=== PATIENT | male | born 1965 | race Hispanic/Latino ===

== ENCOUNTER 2017-03-11 18:43 | Emergency (ER) | payer SELFPAY ==
[2017-03-11] MEDS ORDERED: INSULIN LISPRO 100 UNITS/ML PEN SUBCU ONE (18:59)
--- NOTE | 2017-03-11 19:20 | RAD ---
PROCEDURE: XR CHEST 1 VIEW HISTORY: ams COMPARISON: None TECHNIQUE: Single projection of the chest was done. FINDINGS: The lung christopher are well inflated . There are no discrete airspace infiltrates, pneumothoraces or pleural effusions. The pulmonary vascularity is normal. The cardiomediastinal silhouette is unremarkable for patient's age and sex. IMPRESSION: There is no acute pleural-parenchymal process seen in the imaged lung christopher. Location of Interpretation: Teleradiology Electronically signed by: Tripp Esparza MD 03/11/2017 7:19 PM CDT Workstation: [id number]
--- NOTE | 2017-03-11 19:22 | CT ---
EXAM: Head CLINICAL INDICATION: 52-year-old male with headache and confusion. COMPARISON: None. TECHNIQUE: CT brain without contrast. This exam was performed according to our departmental dose optimization program which includes use of automated exposure control, adjustment of the mA and/or kV according to patient size and/or use of iterative reconstruction technique. FINDINGS: Multifocal regions of patchy hypoattenuation are present in a subcortical and periventricular deep white matter distribution, nonspecific; however, most likely represent small vessel ischemic disease, age indeterminate. Focal area of encephalomalacia and gliosis present at the level of the RIGHT lateral inferior frontal, RIGHT superior frontal parietal temporal and LEFT occipital lobes compatible with sequela of prior infarction. LEFT basal ganglia, RIGHT caudate head focal area of hypoattenuation compatible with sequela of prior infarction. RIGHT cerebellar linear focus of hypoattenuation compatible with sequela of prior infarction. The ventricles, sulci, and cisterns are symmetric and unremarkable. The malloy-white matter differentiation is preserved. There is no mass effect, midline shift, intra- or extra-axial fluid collection/acute hemorrhage. The osseous structures are unremarkable. The paranasal sinuses and mastoid air cells are clear. IMPRESSION: 1. No acute intracranial abnormalities. Nonspecific white matter change most likely small vessel ischemic disease, age indeterminate. 2. CT is insensitive for early evaluation of acute stroke. If there is clinical concern for acute ischemia, an MRI may be considered. 3. Sequela of prior multifocal infarct as detailed above. Electronically signed by: Fernanda Saba MD 03/11/2017 7:21 PM CDT Workstation: [id number]
[2017-03-11] MEDS ORDERED: ASPIRIN TABLET 325 MG TAB PO ONE (20:14)
[2017-03-11 20:57] VITALS: O2SAT 98
--- NOTE | 2017-03-11 21:16 | ED.PDOC ---
History of Present Illness - General Chief Complaint: Neuro Symptoms/Deficits Time Seen by Provider: 03/11/17 18:52 Source: patient, family - History of Present Illness Initial Comments: the patient is a 52-year-old male presenting to the emergency room secondary to being found confused and with significant new visual field deficits by his family this evening. The last time he was seen normal was approximately 8 hours prior to arrival here. Family does report that the patient has been having some progressive vision difficulties over the last 2 weeks but they are markedly worse today. He does have a history of multiple strokes in the past and does have some resultant memory loss from that as well as left upper extremity weakness and difficulties with fine dexterity. He is a type II diabetic and his insulin managed. He has been having progressive memory loss over the last 4 months. No fevers. No neck pain. No abdominal pain. He gives answers to questions and 2-4 word responses. Most of them are correct. Family reports that some of his answers do not quite make total since. He does speak primarily Vincentian but does understand some Sami. On a NIH stroke scale the patient scores a 3 for his visual field defect to the left and inattention to the left visual christopher. his attention also does seem to be somewhat poor. His speech is fairly clear. He does not have any difficulty swallowing water. He is apparently moving his extremities as he normally does. Timing/Duration: unsure Severity: moderate Improving Factors: nothing Worsening Factors: nothing Associated Symptoms: headaches - Reports a very mild central frontal headache. Allergies/Adverse Reactions: Allergies NO KNOWN ALLERGY Allergy (Verified 03/11/17 19:42) Home Medications: Ambulatory Orders Donepezil Hydrochloride [Aricept] 10 mg PO BEDTIME 03/11/17 Metformin HCl 1,000 mg PO BID 03/11/17 Pravastatin Sodium [Pravachol] 20 mg PO BEDTIME 03/11/17 Review of Systems - Review of Systems Constitutional: States: malaise EENTM: States: blurred vision Respiratory: States: no symptoms reported Cardiology: States: no symptoms reported Gastrointestinal/Abdominal: States: no symptoms reported Genitourinary: States: no symptoms reported Musculoskeletal: States: no symptoms reported Skin: States: no symptoms reported Neurological: States: headache - mild, other Endocrine: States: no symptoms reported All other Systems: No Change from Baseline Past Medical History (General) - Patient Medical History Hx Seizures: No Hx Stroke: No Hx Dementia: No Hx Asthma: No Hx of COPD: No Hx Cardiac Disorders: No Hx Congestive Heart Failure: No Hx Pacemaker: No Hx Hypertension: Yes Hx Thyroid Disease: No Hx Diabetes: Yes Hx Gastroesophageal Reflux: No Hx Renal Disease: No Hx Cancer: No Hx of HIV: No Hx Hepatitis C: No Hx MRSA: No Surgical History: no surgical history - Vaccination History Hx Influenza Vaccination: Yes - Social History Hx Tobacco Use: Yes - quit 10 years Hx Alcohol Use: No Hx Substance Use: No Hx Substance Use Treatment: No Hx Depression: No Family Medical History - Family History Mother Family History: No Known Physical Exam - Physical Exam General Appearance: Alert, Comfortable, No apparent distress Eye Exam: bilateral other - once properly prompted the patient does appear to have all extraocular movements preserved at this time. Pupils are symmetrical and responsive to light. He does not appear to see anything in his left visual field. He sees best in hiis right lower visual field. This is for both eyes. Red reflexes are present bilaterally. Ears, Nose, Throat: hearing grossly normal - hoang he does have a fair amount of wax in his ears, normal pharynx Neck: full range of motion, supple Respiratory: lungs clear, normal breath sounds, no respiratory distress, no accessory muscle use Cardiovascular/Chest: normal peripheral pulses, regular rate, rhythm, no edema Peripheral Pulses: radial,right: 2+, radial,left: 2+, dorsalis pedis,right: 2+, dorsalis pedis,left: 2+ Gastrointestinal/Abdominal: non tender, soft Rectal Exam: deferred Back Exam: normal inspection, no CVA tenderness, no vertebral tenderness Extremity: non-tender, no pedal edema, normal capillary refill, other - he does have a significant weakness and decreased range of motion of his left upper extremity. Neurologic: alert, other - the patient does not appear to be upset at all. He knows the year. He recognizes his family members. He is unable to give the month of the day. He knows that Jamison Alejo is president. According to family this is not far off from normal. Skin Exam: normal color Comments: Vital Signs - 24 hr 03/11/17 03/11/17 03/11/17 19:20 19:37 20:00 Temperature 98 F Pulse Rate 71 70 Pulse Rate [ 71 78 80 left] Respiratory 18 22 18 Rate Blood Pressure 192/103 133/75 [left] O2 Sat by Pulse 94 L 98 Oximetry 03/11/17 21:07 Temperature Pulse Rate Pulse Rate [ 67 left] Respiratory 18 Rate Blood Pressure 163/97 [left] O2 Sat by Pulse 98 Oximetry Progress - Progress Progress: 03/11/17 21:23 the patient is a 52-year-old male who is a type II diabetic presenting with symptoms of an ischemic stroke giving new visual field deficits. Given the timeframe and relatively low NIH score, lytics are not being given. The patient is being transferred to [facility] for further neurological evaluation. Blood pressures have corrected on their own. He was given an aspirin here. Symptoms do not appear to have progressed since his arrival. - Results/Orders Results/Orders: Laboratory Tests 03/11/17 03/11/17 03/11/17 18:47 19:09 19:09 WBC 10.3 RBC 5.40 Hgb 15.3 Hct 46.1 MCV 85.2 MCH 28.3 MCHC 33.3 RDW 13.0 Plt Count 202 MPV 9.5 Absolute Neuts (auto) 8.10 H Absolute Lymphs (auto) 1.50 Absolute Monos (auto) 0.60 Absolute Eos (auto) 0.00 Absolute Basos (auto) 0.10 Neutrophils % 78.2 H Lymphocytes % 14.4 L Monocytes % 6.0 Eosinophils % 0.4 L Basophils % 1.0 PT INR PTT (SP) Sodium 139 Potassium 3.6 Chloride 100 L Carbon Dioxide 27 Anion Gap 15.6 BUN 14 Creatinine 0.87 BUN/Creatinine Ratio 16.1 POC Glucose 259 H Random Glucose 287 H Serum Osmolality 288.5 Calcium 9.6 Magnesium 1.9 Total Bilirubin 0.8 AST 29 ALT 38 Alkaline Phosphatase 92 Creatine Kinase 88 CK-MB (CK-2) 1.6 CK-MB (CK-2) % Not Reportable Troponin I 0.04 B-Natriuretic Peptide 21.2 Serum Total Protein 8.6 H Albumin 4.8 Globulin 3.8 H Albumin/Globulin Ratio 1.3 TSH 1.64 Urine Color Urine Appearance Urine pH Ur Specific [place] Urine Protein Urine Glucose (UA) Urine Ketones Urine Blood Urine Nitrite Urine Bilirubin Urine Urobilinogen Ur Leukocyte Esterase Urine RBC Urine WBC Ur Epithelial Cells Amorphous Sediment Urine Bacteria Hyaline Casts Fine Granular Casts Urine Mucus 03/11/17 03/11/17 19:09 19:35 WBC RBC Hgb Hct MCV MCH MCHC RDW Plt Count MPV Absolute Neuts (auto) Absolute Lymphs (auto) Absolute Monos (auto) Absolute Eos (auto) Absolute Basos (auto) Neutrophils % Lymphocytes % Monocytes % Eosinophils % Basophils % PT 10.7 INR 0.950 PTT (SP) 29.3 Sodium Potassium Chloride Carbon Dioxide Anion Gap BUN Creatinine BUN/Creatinine Ratio POC Glucose Random Glucose Serum Osmolality Calcium Magnesium Total Bilirubin AST ALT Alkaline Phosphatase Creatine Kinase CK-MB (CK-2) CK-MB (CK-2) % Troponin I B-Natriuretic Peptide Serum Total Protein Albumin Globulin Albumin/Globulin Ratio TSH Urine Color Yellow Urine Appearance Cloudy Urine pH 5.0 Ur Specific [place] >= 1.030 Urine Protein 30 Urine Glucose (UA) 500 H Urine Ketones Negative Urine Blood Negative Urine Nitrite Negative Urine Bilirubin Small H Urine Urobilinogen 0.2 Ur Leukocyte Esterase Negative Urine RBC 0-1 Urine WBC 1-3 Ur Epithelial Cells 3-5 Amorphous Sediment 2+ Urine Bacteria 1+ Hyaline Casts 1-3 Fine Granular Casts 0-1 Urine Mucus Large chest x-ray appears largely benign. CT scan of the head shows no obvious acute changes however there are old ischemic changes in the right lateral inferior frontal lobe, the right superior frontal parietal area, the left occipital cortex, the left basal ganglia, the right caudate head, and the right cerebellum. EKG shows normal sinus rhythm at a rate of 84 R-wave progression is normal. There is criteria for LVH. Possible left atrial dilation. No definitive acute ischemic changes. QTc interval is normal. - EKG/XRAY/CT CT Ordered: Yes CT Interpretation Call Back: Yes Departure - Departure Clinical Impression: Cerebrovascular accident Qualifiers: CVA mechanism: unspecified Qualified Code(s): I63.9 - Cerebral infarction, unspecified Disposition: Transfer to Hospital Referrals: SB CHIN [Primary Care Provider] - 1-2 Weeks Home Medications: Ambulatory Orders Donepezil Hydrochloride [Aricept] 10 mg PO BEDTIME 03/11/17 Metformin HCl 1,000 mg PO BID 03/11/17 Pravastatin Sodium [Pravachol] 20 mg PO BEDTIME 03/11/17 Transfer to Outside Facility - Transfer Information Accepting Provider:: dr enzo donnelly Accepting Facility: [facility] Reason for Transfer: required specialist not available
[2017-03-11 22:40] VITALS: BP 164/99; TEMP 99
== END 2017-03-11 22:00 | disposition short-term general hospital (02) ==
LOC: ER 18:43
DX: I63.9 Cerebral infarction, unspecified (principal); I10 Essential (primary) hypertension; E11.9 Type 2 diabetes mellitus without complications; I69.311 Memory deficit following cerebral infarction; I69.354 Hemiplegia and hemiparesis following cerebral infarction affecting left non-dominant side; Z87.891 Personal history of nicotine dependence
CPT/HCPCS: 36415; 36416; 70450; 71010; 80053; 81001; 82550; 82553; 82948; 83735; 83880; 84443; 84484; 85025; 85610; 85730; 93005; J1815